=== PATIENT | male | born 1950 | race Caucasian/White ===

== ENCOUNTER 2017-12-24 14:56 | Inpatient (IN) | payer OTHER ==
[2017-12-24] MEDS: ACETAMINOPHEN 325 MG TAB PO (17:45)
[2017-12-24 18:01] LABS: ADD UMIC YES; UR ASCORBIC ACID NEGATIVE (NEGATIVE); UR BILIRUBIN (Dip) NEGATIVE (NEGATIVE); UR BLOOD (Dip) 2+ mg/dL (NEGATIVE); UR CLARITY CLEAR (CLEAR); UR COLOR STRAW (YELLOW); UR GLUCOSE (Dip) 3+ mg/dL (NEGATIVE); UR KETONES (Dip) NEGATIVE (NEGATIVE); UR LEUKOCYTE ESTERASE (Dip) NEGATIVE Leu/ul (NEGATIVE); UR NITRITE (Dip) NEGATIVE (NEGATIVE); UR RBC 28 /HPF (0-5); UR TOTAL PROTEIN (Dip) 3+ mg/dl (NEGATIVE); UR UROBILINOGEN (Dip) NEGATIVE (NEGATIVE); UR WBC 0 /HPF (0-5)
[2017-12-24 20:25] LABS: ADD MAN DIFF? NO
[2017-12-24 20:26] LABS: ABNORMAL IP MESSAGE 1; BASOPHILS % 0.5 % (0.0-2.0); HEMATOCRIT 37.1 % (42.0-52.0); HEMOGLOBIN 13.5 g/dl (14.0-18.0); LYMPHOCYTES # 0.5 10^3/ul (0.8-2.9); LYMPHOCYTES % 7.4 % (15.0-51.0); MEAN CORPUSCULAR HEMOGLOBIN 30.6 pg (29.0-33.0); MEAN CORPUSCULAR HGB CONC 36.4 g/dl (32.0-37.0); MEAN CORPUSCULAR VOLUME 84.1 fl (82.0-101.0); MEAN PLATELET VOLUME 11.6 fl (7.4-10.4); MONOCYTE # 0.8 10^3/ul (0.3-0.9); MONOCYTES % 12.7 % (0.0-11.0); NEUTROPHIL # 4.9 10^3/ul (1.6-7.5); NEUTROPHILS % 78.8 % (39.0-77.0); PLATELET COUNT 156 10^3/UL (140-415); POSITIVE DIFF @See below; RED BLOOD COUNT 4.41 10^6/ul (4.70-6.10); RED CELL DISTRIBUTION WIDTH 13.1 % (11.5-14.5)
[2017-12-24 20:26] LABS: WHITE BLOOD COUNT 6.2 10^3/ul (4.8-10.8)
[2017-12-24] MEDS: LABETALOL HCL 20MG INJ IV ×2 (20:30→22:01)
[2017-12-24 20:37] LABS: ANION GAP 17 (8-16); BLOOD UREA NITROGEN 11 mg/dl (7-20); CALCIUM 8.8 mg/dl (8.4-10.2); CARBON DIOXIDE 23 mmol/L (21-31); CHLORIDE 88 mmol/L (97-110); CREATININE 0.68 mg/dl (0.61-1.24); GLUCOSE 193 mg/dl (70-220); POTASSIUM 4.1 mmol/L (3.5-5.1); SODIUM 124 mmol/L (135-144)
[2017-12-24 20:57] LABS: TROPONIN-I < 0.012 ng/ml (0.00-0.12)
[2017-12-24] MEDS: SOD CHLORIDE 0.9% 500 ML IV (22:01)
[2017-12-24] MEDS: SOD CHLORIDE 0.9% 1,000 ML IV (22:58)
[2017-12-25] MEDS ORDERED: ACETAMINOPHEN 325 MG TAB PO (02:00)
[2017-12-25] MEDS ORDERED: morphine 2 MG INJ IV (02:00)
[2017-12-25] MEDS ORDERED: ONDANSETRON 4 MG INJ IV (02:00)
[2017-12-25] MEDS ORDERED: ALBUTEROL/IPRATROPIUM (NEB) 3 ML AMP HHN (02:00)
[2017-12-25] MEDS ORDERED: NACL 0.9% 3 ML SYG IV (02:00)
[2017-12-25] MEDS ORDERED: GLUCOSE GEL 15 GRAM TUBE BUCCAL (02:30)
[2017-12-25] MEDS ORDERED: hydrALAzine 20 MG INJ IV (02:30)
[2017-12-25] MEDS ORDERED: GLUCOSE GEL 15 GRAM TUBE PO ×2 (02:30)
[2017-12-25] MEDS ORDERED: GLUCAGON 1 MG INJ IM (02:30)
[2017-12-25] MEDS ORDERED: DEXTROSE 50% 50 ML SYRINGE IV ×2 (02:30)
[2017-12-25] MEDS: METOCLOPRAMIDE 10 MG INJ IV ×4 (03:27→20:15)
[2017-12-25] MEDS: AMLODIPINE 10 MG TAB PO (03:27)
[2017-12-25] MEDS: SOD CHLORIDE 0.9% 1,000 ML IV ×3 (03:27→21:45)
[2017-12-25] MEDS: metFORMIN 500 MG TAB PO ×2 (08:27→17:12)
[2017-12-25] MEDS: LISINOPRIL 10 MG TAB PO (08:27)
[2017-12-25] MEDS: METOPROLOL (XL) 50 MG TAB PO (08:28)
[2017-12-25] MEDS: HYDROCHLOROTHIAZIDE 25 MG TAB PO (08:28)
[2017-12-25] MEDS: ACARBOSE 50 MG TAB PO ×3 (08:28→17:12)
[2017-12-25 08:32] LABS: ADD MAN DIFF? NO
[2017-12-25 08:47] LABS: HEMOGLOBIN A1C 6.7 % (0-5.9)
[2017-12-25 08:51] LABS: ABNORMAL IP MESSAGE 1; BASOPHILS % 0.4 % (0.0-2.0); EOSINOPHILS % 0.2 % (0.0-7.0); HEMATOCRIT 32.8 % (42.0-52.0); HEMOGLOBIN 12.1 g/dl (14.0-18.0); LYMPHOCYTES # 0.6 10^3/ul (0.8-2.9); LYMPHOCYTES % 10.6 % (15.0-51.0); MEAN CORPUSCULAR HEMOGLOBIN 30.6 pg (29.0-33.0); MEAN CORPUSCULAR HGB CONC 36.9 g/dl (32.0-37.0); MEAN PLATELET VOLUME 10.3 fl (7.4-10.4); MONOCYTE # 0.7 10^3/ul (0.3-0.9); MONOCYTES % 13.6 % (0.0-11.0); NEUTROPHILS % 74.5 % (39.0-77.0); PLATELET COUNT 148 10^3/UL (140-415); POSITIVE DIFF @See below; RED BLOOD COUNT 3.95 10^6/ul (4.70-6.10); RED CELL DISTRIBUTION WIDTH 12.7 % (11.5-14.5)
[2017-12-25 08:51] LABS: WHITE BLOOD COUNT 5.4 10^3/ul (4.8-10.8)
[2017-12-25 09:08] LABS: ALANINE AMINOTRANSFERASE 30 IU/L (13-69); ALBUMIN 3.6 g/dl (3.3-4.9); ALKALINE PHOSPHATASE 60 IU/L (42-121); ANION GAP 14 (8-16); ASPARTATE AMINO TRANSFERASE 25 IU/L (15-46); BILIRUBIN,INDIRECT 0.5 mg/dl (0-1.1); BILIRUBIN,TOTAL 0.5 mg/dl (0.2-1.3); BLOOD UREA NITROGEN 8 mg/dl (7-20); CALCIUM 8.3 mg/dl (8.4-10.2); CARBON DIOXIDE 22 mmol/L (21-31); CHLORIDE 92 mmol/L (97-110); CREATININE 0.64 mg/dl (0.61-1.24); GLUCOSE 167 mg/dl (70-220); POTASSIUM 3.7 mmol/L (3.5-5.1); SODIUM 124 mmol/L (135-144); TOTAL PROTEIN 6.6 g/dl (6.1-8.1)
[2017-12-25] MEDS: INSULIN ASPART [NOVOLOG] 3 ML PEN SC ×2 (17:14→20:14)
[2017-12-25] MEDS: HALOPERIDOL 5 MG INJ IM (23:00)
[2017-12-25] MEDS ORDERED: LORAZEPAM 2 MG INJ IV (23:00)
[2017-12-26] MEDS: METOCLOPRAMIDE 10 MG INJ IV (02:00)
[2017-12-26] MEDS ORDERED: HALOPERIDOL 5 MG INJ IM (03:00)
[2017-12-26] MEDS: SOD CHLORIDE 0.9% 1,000 ML IV ×2 (07:45→11:04)
[2017-12-26] MEDS: HYDROCHLOROTHIAZIDE 25 MG TAB PO (08:28)
[2017-12-26] MEDS: ACARBOSE 50 MG TAB PO ×2 (08:30→12:33)
[2017-12-26] MEDS: LISINOPRIL 10 MG TAB PO (08:35)
[2017-12-26] MEDS: METOPROLOL (XL) 50 MG TAB PO (08:36)
[2017-12-26] MEDS: metFORMIN 500 MG TAB PO (08:39)
[2017-12-26] MEDS: INSULIN ASPART [NOVOLOG] 3 ML PEN SC ×2 (08:40→12:34)
[2017-12-26 09:37] LABS: ADD MAN DIFF? NO
[2017-12-26 10:16] LABS: ANION GAP 15 (8-16); BLOOD UREA NITROGEN 10 mg/dl (7-20); CALCIUM 8.3 mg/dl (8.4-10.2); CARBON DIOXIDE 22 mmol/L (21-31); CHLORIDE 92 mmol/L (97-110); CREATININE 0.72 mg/dl (0.61-1.24); GLUCOSE 156 mg/dl (70-220); MAGNESIUM 1.4 mg/dl (1.7-2.5); PHOSPHORUS 2.7 mg/dl (2.5-4.9); POTASSIUM 4.2 mmol/L (3.5-5.1); SODIUM 125 mmol/L (135-144)
[2017-12-26 10:19] LABS: WHITE BLOOD COUNT 5.7 10^3/ul (4.8-10.8)
[2017-12-26 10:19] LABS: ABNORMAL IP MESSAGE 1; BASOPHILS % 0.4 % (0.0-2.0); HEMATOCRIT 32.3 % (42.0-52.0); LYMPHOCYTES # 0.5 10^3/ul (0.8-2.9); LYMPHOCYTES % 9.3 % (15.0-51.0); MEAN CORPUSCULAR HEMOGLOBIN 30.8 pg (29.0-33.0); MEAN CORPUSCULAR HGB CONC 37.2 g/dl (32.0-37.0); MEAN PLATELET VOLUME 10.4 fl (7.4-10.4); MONOCYTE # 0.7 10^3/ul (0.3-0.9); MONOCYTES % 12.9 % (0.0-11.0); NEUTROPHIL # 4.3 10^3/ul (1.6-7.5); NEUTROPHILS % 76.5 % (39.0-77.0); PLATELET COUNT 152 10^3/UL (140-415); POSITIVE DIFF @See below; RED BLOOD COUNT 3.89 10^6/ul (4.70-6.10); RED CELL DISTRIBUTION WIDTH 13.1 % (11.5-14.5)
[2017-12-26 10:24] LABS: CHOLESTEROL 126 mg/dl (100-200)
[2017-12-26 10:24] LABS: CHOL/HDL RATIO 3.4 RATIO; HDL CHOLESTEROL 37 mg/dl (31-75); LDL CHOLESTEROL,CALCULATED 70 mg/dl; TRIGLYCERIDES 93 mg/dl (0-149)
[2017-12-26] MEDS: MAGNESIUM OXIDE 400 MG TAB PO (13:41)
== END 2017-12-26 15:14 | disposition home or self-care (01) | DRG 86 ==
LOC: E/R 14:56 → MS4 21:11
DX: S06.301A Unspecified focal traumatic brain injury with loss of consciousness of 30 minutes or less, initial encounter (principal); E87.1 Hypo-osmolality and hyponatremia; E85.4 Organ-limited amyloidosis; S06.5X1A Traumatic subdural hemorrhage with loss of consciousness of 30 minutes or less, initial encounter; I16.0 Hypertensive urgency; E66.9 Obesity, unspecified; I68.0 Cerebral amyloid angiopathy; Z68.33 Body mass index [BMI] 33.0-33.9, adult; E11.9 Type 2 diabetes mellitus without complications; Z86.73 Personal history of transient ischemic attack (TIA), and cerebral infarction without residual deficits; Y92.009 Unspecified place in unspecified non-institutional (private) residence as the place of occurrence of the external cause; W11.XXXA Fall on and from ladder, initial encounter
CPT/HCPCS: 36415; 70450; 70552; 72125; 80048; 80053; 80061; 81001; 82962; 83036; 83735; 84100; 84484; 85025; 92610; 93306; 93880; 96374; 99291-25